=== PATIENT | male | born 2000 | race American Indian/Alaskan Native ===

== ENCOUNTER 2019-05-10 10:09 | Emergency (ER) | payer OTHER ==
[~2019-05-10] VITALS: Ht 182.9 cm; Wt 76.4 kg
[2019-05-10 10:15] VITALS: BP 139/86
== END 2019-05-10 10:44 | disposition home or self-care (01) ==
LOC: ER 10:11
DX: S00.33XA Contusion of nose, initial encounter (principal); W21.05XA Struck by basketball, initial encounter; Y93.67 Activity, basketball; Y92.89 Other specified places as the place of occurrence of the external cause; Y99.8 Other external cause status
CPT/HCPCS: 99281